=== PATIENT | female | born 1965 | race Caucasian/White ===

== ENCOUNTER 2017-02-03 06:27 | Day surgery (SDC) | payer BC ==
[2017-02-02 12:43] VITALS: BMI 23.3
[2017-02-03] MEDS ORDERED: MIDAZOLAM HCL 2 MG/2 ML SINGLE DOSE VIAL ONE ×2 (07:13)
[2017-02-03] MEDS ORDERED: ROPIVACAINE HCL 0.5% 30ML VIAL ONE (07:15)
[2017-02-03] MEDS ORDERED: SCOPOLAMINE HYDROBROMIDE 1 PATCH PATCH.TD72 ONE (08:09)
--- NOTE | 2017-02-03 08:10 | HP ---
Admitting History and Physical - Admission Chief Complaint: Fibroid uterus History of Present Illness: 51 yo with Leiomyoma of the uterus is Pre op for abdominal hysterectomy History Source: Patient Limitations to Obtaining History: No Limitations - Past Medical History ...LMP: 12/30/16 ...: No - Smoking History Smoking history: Never smoked Have you smoked in the past 12 months: No - Alcohol/Substance Use Hx Alcohol Use: No - Social History History of Recent Travel: No Home Medications - Allergies Allergies/Adverse Reactions: Allergies Allergy/AdvReac Type Severity Reaction Status Date / Time No Known Allergies Allergy Verified 02/03/17 07:19 - Home Medications Home Medications: Ambulatory Orders Ferrous Gluconate [Iron] 256 mg PO DAILY 02/02/17 Family Disease History - Family Disease History Family History: Unremarkable Review of Systems - Review of Systems Constitutional: reports: No Symptoms Eyes: reports: No Symptoms Neck: reports: No Symptoms Cardiovascular: reports: No Symptoms Respiratory: reports: No Symptoms Gastrointestinal: reports: No Symptoms Genitourinary: reports: Pain Breasts: reports: No Symptoms Reported Musculoskeletal: reports: No Symptoms Integumentary: reports: No Symptoms Neurological: reports: No Symptoms Endocrine: reports: No Symptoms Hematology/Lymphatic: reports: No Symptoms Physical Examination Vital Signs: Vital Signs Temperature 97.8 F 02/03/17 07:18 Pulse Rate 55 L 02/03/17 07:18 Respiratory Rate 18 02/03/17 07:18 Blood Pressure 113/76 02/03/17 07:18 O2 Sat by Pulse Oximetry (%) 97 02/03/17 07:19 Constitutional: Yes: Well Nourished Eyes: Yes: Conjunctiva Clear HENT: Yes: Atraumatic Neck: Yes: Supple, Trachea Midline Cardiovascular: Yes: Regular Rate and Rhythm Respiratory: Yes: Regular, CTA Bilaterally Gastrointestinal: Yes: Normal Bowel Sounds Breast(s): Yes: WNL Musculoskeletal: Yes: WNL Extremities: Yes: WNL Neurological: Yes: Alert, Oriented ...Motor Strength: WNL Psychiatric: Yes: Alert, Oriented Assessment/Plan Leiomyoma of the uterus Pre op Count includes the [facility] Consent signed Anesthesia to see patient
[2017-02-03] MEDS ORDERED: PROPOFOL 20 ML ONE (08:16)
[2017-02-03] MEDS ORDERED: ROCURONIUM BROMIDE 50 MG/5 ML VIAL ONE (08:16)
[2017-02-03] MEDS ORDERED: ceFAZolin SODIUM 1 GM VIAL ONE (08:22)
[2017-02-03] MEDS ORDERED: ceFAZolin SODIUM 1 GM VIAL IVPB ONE (08:24)
[2017-02-03] MEDS ORDERED: DEXAMETHASONE SOD PHOSPHATE 4 MG/1 ML VIAL ONE (08:32)
[2017-02-03] MEDS ORDERED: GLYCOPYRROLATE 0.2 MG/1 ML VIAL ONE (09:24)
[2017-02-03] MEDS ORDERED: KETOROLAC TROMETHAMINE 30 MG/1 ML VIAL ONE (09:24)
[2017-02-03] MEDS ORDERED: NEOSTIGMINE METHYLSULFATE 0.5 MG/ML - 10 ML MDV ONE (09:24)
[2017-02-03] MEDS ORDERED: HYDROmorphone HCL CARPU-JECT 1 MG/1 ML DISP.SYRIN IVPUSH PRN (09:28)
[2017-02-03] MEDS ORDERED: PROMETHAZINE HCL 25 MG/1 ML VIAL IVPUSH PRN (09:28)
[2017-02-03] MEDS ORDERED: ONDANSETRON 4 MG/2 ML VIAL IVPUSH PRN (09:28)
[2017-02-03] MEDS ORDERED: LACTATED RINGERS SOLUTION 1,000 ML IV SCH (09:30)
[2017-02-03] MEDS ORDERED: DEXTROSE 5%-LACTATED RINGERS 1,000 ML IV SCH (09:45)
--- NOTE | 2017-02-03 09:48 | OP ---
Operative Note - Note: Operative Date: 02/03/17 Pre-Operative Diagnosis: Leiomyoma of the uterus Operation: Supracervical Hysterectomy Findings: Uterus with Irregular border Surgeon: Elizabeth Dukes Animal Attendant: Serene Alvarez Anesthesia: General Specimens Removed: Uterus Estimated Blood Loss (mls): 150
[2017-02-03] MEDS ORDERED: CEFAZOLIN 1 GM/D5W 50 ML IVPB ONE (10:00)
[2017-02-03] MEDS ORDERED: HYDROmorphone HCL CARPU-JECT 2 MG/1 ML DISP.SYRIN ONE (10:18)
[2017-02-03] MEDS ORDERED: ACETAMINOPHEN INJECTION 100 ML IVPB ONE (13:33)
[2017-02-03] MEDS: ACETAMINOPHEN 1000 MG/100 ML VIAL (NON FORMULARY) IVPB PRN ×2 (13:38→23:12)
[2017-02-03] MEDS: IBUPROFEN 800 MG/8 ML IJ IVPB PRN (16:39)
[2017-02-04] MEDS: IBUPROFEN 800 MG/8 ML IJ IVPB PRN (05:55)
--- NOTE | 2017-02-04 07:17 | PN ---
Progress Note (SOAP) - Subjective Chief Complaint: Pt doing well - Current Medications Current Medications: Active Medications Hydromorphone HCl (Dilaudid Injection -) 1 mg IVPUSH [id number] PRN PRN Reason: PAIN Stop: 02/06/17 09:29 Last Admin: 02/03/17 10:20 Dose: 1 mg Lactated Ringer's (Lactated Ringers Solution) 1,000 mls @ 125 mls/hr IV ASDIR EBER Dextrose/Lactated Ringer's (D5-Lr -) 1,000 mls @ 125 mls/hr IV ASDIR EBER Last Admin: 02/03/17 13:00 Dose: 0 mls Ibuprofen (Caldolor Injection -) 800 mg IVPB Q8H PRN PRN Reason: FEVER Last Admin: 02/04/17 05:55 Dose: 800 mg - Objective Vital Signs: Vital Signs Temperature 99.2 F 02/04/17 06:00 Pulse Rate 53 L 02/04/17 06:00 Respiratory Rate 20 02/04/17 06:00 Blood Pressure 146/68 02/04/17 06:00 O2 Sat by Pulse Oximetry (%) 98 02/03/17 13:00 Constitutional: Yes: Well Nourished, No Distress Musculoskeletal: Yes: WNL Extremities: Yes: WNL Wound/Incision: Yes: Dressing Dry and Intact Assessment/Plan SP hysterectomy Plan CBC OOB
--- NOTE | 2017-02-04 14:14 | PN ---
Progress Note (short form) - Note Progress Note: lucita Note: Anesthesia post op note,POD#1 S/P abdominal hysterectomy,under GETA and TAP block. Pat seen and examined,VSS. No apparent post anesthesia complications. Signed off.
[2017-02-04] MEDS ORDERED: ACETAMINOPHEN 325 MG TABLET (FP) PO PRN (21:05)
[2017-02-04] MEDS ORDERED: IBUPROFEN 600 MG TABLET (FP) PO PRN (21:06)
[2017-02-05 07:49] VITALS: BP 125/71; PULSE 68; TEMP 98.1
--- NOTE | 2017-02-05 09:26 | PN ---
Progress Note (SOAP) - Subjective Chief Complaint: Pt doing well - Current Medications Current Medications: Active Medications Acetaminophen (Tylenol -) 650 mg PO Q4H PRN PRN Reason: FEVER OR PAIN Last Admin: 02/04/17 21:11 Dose: 650 mg Hydromorphone HCl (Dilaudid Injection -) 1 mg IVPUSH [id number] PRN PRN Reason: PAIN Stop: 02/06/17 09:29 Last Admin: 02/03/17 10:20 Dose: 1 mg Lactated Ringer's (Lactated Ringers Solution) 1,000 mls @ 125 mls/hr IV ASDIR EBER Dextrose/Lactated Ringer's (D5-Lr -) 1,000 mls @ 125 mls/hr IV ASDIR EBER Last Admin: 02/03/17 13:00 Dose: 0 mls Ibuprofen (Caldolor Injection -) 800 mg IVPB Q8H PRN PRN Reason: FEVER Last Admin: 02/04/17 05:55 Dose: 800 mg Ibuprofen (Motrin -) 600 mg PO Q4H PRN PRN Reason: PAIN Last Admin: 02/04/17 21:10 Dose: 600 mg - Objective Vital Signs: Vital Signs Temperature 98.1 F 02/05/17 07:48 Pulse Rate 68 02/05/17 07:48 Respiratory Rate 20 02/05/17 07:48 Blood Pressure 125/71 02/05/17 07:48 O2 Sat by Pulse Oximetry (%) 98 02/03/17 13:00 Constitutional: Yes: Well Nourished, No Distress Cardiovascular: Yes: WNL Respiratory: Yes: WNL Gastrointestinal: Yes: WNL, Normal Bowel Sounds Wound/Incision: Yes: Open to air Assessment/Plan SP hysterectomy Plan CBC OOB
--- NOTE | 2017-02-09 15:17 | PATH ---
Surgical Pathology Report Patient Name: SONY BURTON [facility]. Rec. #: [id number] /Age/Gender: 1965 (Age: 51) / F Account: [id number] Location: AMBULATORY SURG Taken: 02/03/2017 Received: 02/03/2017 Reported: 02/09/2017 Physicians: Elizabeth Dukes M.D. Specimen(s) Received UTERUS Clinical History Leiomyoma of the uterus Final Diagnosis UTERUS, ABDOMINAL HYSTERECTOMY: UTERUS (WEIGHT: 142 G) SHOWING LEIOMYOMAS AND INACTIVE ENDOMETRIUM. Electronically Signed Tawnya Westfall M.D. Gross Description Received in formalin labeled "uterus," is a 142 g supracervically amputated uterus with no attached adnexa. The serosa is grayson-pink with focal bulging subserosal nodules. The specimen measures 7 cm from anterior to posterior, 6.7 cm from superior to inferior and 6.3 cm from left to right. The endometrial cavity measures 4.5 cm in length and averages 2 cm in diameter. The endometrium is grayson-red and averages 0.1 cm in thickness. Sectioning reveals multiple intramural nodules, measuring up to 4.0 cm in greatest dimension. The cut surface of the subserosal and intramural nodules is grayson, firm to rubbery and displays whorled architecture. No areas of hemorrhage or necrosis are identified. The remaining myometrium is grayson-pink and averages 3.4 cm in thickness. Nanofabrication Specialist sections are submitted in 9 cassettes as follows: 1-cervical stump margin of resection; 6-8-inojeeajupkiyj; 6-subserosal nodules; 7-intramural nodules; 8-9-largest intramural nodule. 02/03/201702/03/2017
--- NOTE | 2017-03-09 10:29 | OP ---
DATE OF OPERATION: 02/03/2017 PREOPERATIVE DIAGNOSIS: Leiomyoma of the uterus. POSTOPERATIVE DIAGNOSIS: Leiomyoma of the uterus. PROCEDURE: Abdominal hysterectomy. SURGEON: Elizabeth Dukes MD APPAREL RENTAL CLERK: Serene Tidwell MD ANESTHESIA: General. COMPLICATIONS: None. ESTIMATED BLOOD LOSS: 100 mL DESCRIPTION OF PROCEDURE: Patient was taken to the operating room where general anesthesia was administered. Patient was then prepped and draped in proper sterile fashion. A Pfannenstiel incision was made approximately 2 cm above the symphysis pubis and extended sharply to the rectus fascia. The fascia was incised bilaterally with the curved Reyes scissors, and the muscle of the anterior abdominal wall was to the midline by sharp and blunt dissection. The peritoneum was then grasped between 2 pickups, elevated, and entered sharply with the scalpel. The pelvis was examined, and the bowel was packed with moist laparotomy sponges. Two clamps were used on the cornua and used for retraction. The round ligament on both sides was clamped, burned, and cut using the LigaSure device. The anterior leaf of the broad ligament was incised along the bladder reflection to the midline from both sides. The bladder was gently dissected off the lower uterine segment and the cervix with a sponge stick. The utero-ovarian ligaments were then clamped with the LigaSure device, burned, and cut. Hemostasis was visualized. The uterine arteries were skeletonized bilaterally, clamped with Dunia clamp, transected, and suture ligated. The uterosacral ligaments were clamped on both sides, burned, and cut. Then, the uterus was amputated of the cervix. The cervical stump was repaired using 0 Vicryl. The remainder of the cervical stump was closed in an interrupted fashion. Hemostasis was assured. All laparotomy sponges and instruments were removed from the abdomen. The fascia was closed with 0 Vicryl, and the skin was closed in a subcuticular fashion using 3-0 Vicryl. Patient tolerated the procedure well. Patient was then taken to PACU in stable condition. Raymond BORREGO/[id number]
== END 2017-02-05 09:45 | disposition home or self-care (01) ==
LOC: JASUSAT 06:27 → EDSTATUS 08:00 → J3W 14:44 → JASUSAT 02-05 09:45
PROVIDERS: ATTEND Obstetrics & Gynecology
PROC: 0UT90ZZ Resection of Uterus, Open Approach (ICD-10-PCS; principal; 2017-02-03 08:00)
DX: D25.9 Leiomyoma of uterus, unspecified (principal)
CPT/HCPCS: 36415; 84702; 86850; 86900; 86901; 88307-TC; 94010; 94760

== ENCOUNTER 2021-11-19 11:49 | Emergency (ER) | payer OTHER ==
[2021-11-19 12:01] VITALS: BP 132/74; PULSE 73; TEMP 97.8; BMI 23.3
[2021-11-19] MEDS ORDERED: IBUPROFEN 600 MG TABLET (FP) PO ONE ×2 (12:27→12:28)
[2021-11-19] MEDS ORDERED: LIDOCAINE 5% TOPICAL PATCH ONE (12:28)
[2021-11-19] MEDS ORDERED: LIDOCAINE 5% TOPICAL PATCH TP ONE (12:28)
[2021-11-19] MEDS ORDERED: LIDOCAINE PATCH REMOVAL MC SCH (22:00)
== END 2021-11-19 14:19 | disposition home or self-care (01) ==
LOC: JERFT 11:49
DX: R07.81 Pleurodynia (principal)
CPT/HCPCS: 71101-TC-RT-FY; 99283-25